=== PATIENT | female | born 1965 | race Caucasian/White ===

== ENCOUNTER 2020-01-01 16:39 | Outpatient (CLI) | payer BC, SELFPAY ==
--- NOTE | ~2020-01-01 | XR_ITS ---
XR sacrum coccyx min 2V DATE: 01/01/2020 17:13 INDICATION: Low back pain, right sciatica TECHNIQUE: AP, angled AP and lateral views COMPARISON: None FINDINGS: No fracture or bone destruction of the sacrum or coccyx. The sacroiliac joints are intact. Severe degenerative disc disease is noted at L4-5. IMPRESSION: Severe degenerative disc disease at L4-5 Reviewed, dictated and finalized at location A.
--- NOTE | ~2020-01-01 | XR_ITS ---
XR lumbar spine 2-3V DATE: 01/01/2020 17:13 INDICATION: Low back pain, right sciatica TECHNIQUE: AP, lateral, coned lateral lumbosacral views COMPARISON: None FINDINGS: There is normal alignment of the lumbar spine. No fracture or bone destruction or spondylol isthesis. There is severe degenerative disc disease with prominent posterior spurring at L4-5. There is mild to moderate degenerative disc disease at L1-2 and L2-3. There is mild degenerative disc disease at L3-4 and L5-S1. No fracture or bone destruction. The included lower thoracic and lumbar pedicles are intact. The sacroiliac joints are intact. IMPRESSION: Multilevel degenerative disc disease, especially at L4-5 Reviewed, dictated and finalized at location A.
== END 2020-01-01 16:40 | disposition home or self-care (01) ==
PROVIDERS: PCP Family Medicine; Visit Provider Nurse Practitioner
DX: M54.41 Lumbago with sciatica, right side (principal); M51.36 Other intervertebral disc degeneration, lumbar region
CPT/HCPCS: 72100; 72220

== ENCOUNTER 2023-06-03 08:49 | Emergency (ER) | payer OTHER, SELFPAY ==
--- NOTE | ~2023-06-03 | CT_ITS ---
EXAMINATION: CT abdomen pelvis w con DATE: 06/03/2023 09:41 INDICATION: Left abdominal pain. Nausea and vomiting. TECHNIQUE: Computed tomography (CT) of the abdomen and pelvis was performed with 100 mL Omnipaque 350 intravenous contrast. Automated exposure control and iterative reconstruction technique were employe d. The dose-length product was 923.65 mGy-cm. COMPARISON: CT abdomen and pelvis 12/12/2012 FINDINGS: The visualized portions of the lung bases demonstrate mild atelectasis. No pleural effusion . The heart size is normal. No pericardial effusion. There is a small sliding hiatal hernia. The live r, spleen, pancreas, and adrenal glands are normal. The gallbladder is absent. There is a 4 mm cyst i n right kidney. There are two stones in right kidney measuring up to 4 mm. There is a delayed left-si ded contrast nephrogram. There are 3 mm and 6 mm stones in left kidney. There is mild left hydronephr osis and hydroureter. There is a 2 mm stone in distal left ureter. 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 There is diverticulosis of the colon without evidence of diverticulitis. There are no dila hawa loops of bowel. The appendix is normal. There are no pathologically enlarged lymph nodes. There i s no free intraperitoneal fluid. There is severe lumbar spondylosis. IMPRESSION: 1. 2 mm stone in distal left ureter with mild left hydronephrosis and hydroureter. 2. Bilateral nonobstructing kidney stones. Reviewed, dictated and finalized at location A. OM PRESSER IMPRESSION: 1. 2 mm stone in distal left ureter with mild left hydronephrosis and hydrouret er. 2. Bilateral nonobstructing kidney stones.
[2023-06-03 08:50] VITALS: BP 166/89; PULSE 75; RESP 20; TEMP 36.6; O2SAT 99
--- NOTE | 2023-06-03 09:08 | ECG_ITS ---
Measurements Intervals Walsh Rate: 82 P: 60 NV: 148 QRS: 43 QRSD: 80 T: 38 QT: 397 QTc: 464 Interpretive Statements SINUS RHYTHM NO PREVIOUS ECG AVAILABLE FOR COMPARISON Electronically Signed On 06-03-2023 13:59:52 [employer] by Amanda Read M.D.
--- NOTE | 2023-06-03 09:11 | ED.ABDPAIN ---
HPI - Abdominal Pain General Chief Complaint: Abdominal Pain Stated Complaint: ABD PAIN Time Seen by Provider: 06/03/23 08:58 History of Present Illness HPI narrative: Patient noticed severe pain to her left flank, with nausea vomiting, radiating to the front, she took an Aleve last night to sleep, woke up this morning the pain was worse, she tried Tylenol, it did not help, so came to the hospital. Normal bowel movements. No fevers or chills. No dysuria. Related Data Allergies Allergy/AdvReac Type Severity Reaction Status Date / Time ciprofloxacin Allergy Verified 05/04/13 13:18 levofloxacin Allergy Verified 05/04/13 13:18 CIPROFLOXACIN HCL Allergy Uncoded 05/04/13 13:18 Review of Systems Review of Systems: All systems reviewed & are unremarkable except as noted in HPI and below PMFSH Family History Family History (Updated 11/29/15 @ 23:19 by DOCTOR UNKNOWN) Mother Hypertension Family history of heart disease in male family member before age 55 Father Family history of diabetes mellitus in first degree relative Social History Social History Alcohol intake: current Exam Narrative: EXAMINATION OF ORGAN SYSTEMS/BODY AREAS: Constitutional: Vital signs per nursing GENERAL: Curled up with emesis bag, looking sad HEAD: Normal with no signs of head trauma. EYES: EOMI, conjunctiva normal ENT: Hearing grossly intact LUNGS: Nonlabored breathing. HEART: [Regular rate and rhythm] ABD: [Soft], [nontender to palpation anterior abdomen; she does have L CVA tenderness] EXT: Normal range of motion SKIN: [No rashes or lesions.] NEURO: [Alert and oriented x 3. No gross focal sensory or strength deficits.] PSYCH: Normal affect Course Vital Signs Vital signs: Vital Signs Temperature 97.8 F 06/03/23 08:50 Pulse Rate 75 06/03/23 08:50 Respiratory Rate 20 06/03/23 08:50 Blood Pressure 166/89 H 06/03/23 08:50 Pulse Oximetry 99 06/03/23 08:50 Oxygen Delivery Room Air 06/03/23 08:50 Temperature 98 F 06/03/23 11:30 Pulse Rate 93 06/03/23 11:30 Respiratory Rate 18 06/03/23 11:30 Blood Pressure 176/89 H 06/03/23 11:30 Pulse Oximetry 97 06/03/23 11:30 Oxygen Delivery Room Air 06/03/23 08:50 MDM - Abdominal Pain MDM Narrative Medical decision making narrative: ED COURSE AND MEDICAL DECISION MAKINF presenting to the emergency department for acute flank pain, symptoms are concerning for likely renal colic versus pyelonephritis, also considered diverticulitis. Urinalysis is ordered. IV [Morphine 4mg, Zofran 4mg] are ordered. CT scan of the abdomen/pelvis is ordered. Labs are remarkable for: WBC 13.5, slightly elevated LFTs, UA slight RBCs. CT scan of the abdomen/pelvis is reviewed by myself and interpreted by radiology: 2mm distal stone L ureter. On reevaluation, the patient still having some pain but appears more comfortable. She is agreeable to outpatient followup and management. Patient is strongly advised to return to the emergency department for any increasing pain not improving with medications, persistent nausea vomiting, fevers or chills or for any other concerns. Patient is comfortable with this plan and was discharged in fair condition. Lab Data 06/03/23 09:19 06/03/23 09:28 Labs: Lab Results 06/03/23 06/03/23 06/03/23 Range/Units 09:16 09:16 09:16 WBC (4.5-10.0) K/mm3 RBC (4.2-5.4) M/mm3 Hgb (12.0-15.0) g/dL Hct (37.0-47.0) % MCV (80-100) fl MCH (26-34) pg MCHC (32-36) g/dl RDW (11.5-14.5) % Plt Count (150-375) k/mm3 MPV (7.4-10.4) fl Immature Gran % (Auto) (0-0.5) % Neut % (Auto) (45.5-73.1) % Lymph % (Auto) (18.3-44.2) % [place] % (Auto) (2.6-8.5) % Eos % (Auto) (0-4.4) % Baso % (Auto) (0.2-1.2) % Lymph # (Auto) (0.9-3.2) K/mm3 [place] # (Auto) (0.1-0.6) K/mm3 Eos # (Auto) (0-0.3) K/mm3 Baso # (Auto)
[2023-06-03] MEDS: ONDANSETRON INJ 4 MG/2 ML VIAL IV PUSH (09:13)
[2023-06-03] MEDS: MORPHINE SULFATE (*CRX) 4 MG/ML INJ IV PUSH (09:13)
[2023-06-03 09:19] VITALS: BP 131/88; PULSE 79; RESP 18; O2SAT 95
[2023-06-03 09:26] LABS: Basophils Absolute Auto 0.1 K/mm3 (0.0-0.1); Basophils Percent Auto 0.4 % (0.2-1.2); Hematocrit 46.1 % (37.0-47.0); Hemoglobin 15.2 g/dL (12.0-15.0); Immature Granulocyte Absolute 0.08 K/mm3 (0.00-0.031); Immature Granulocyte Percent A 0.6 % (0-0.5); Lymphocytes Absolute Auto 1.32 K/mm3 (0.9-3.2); Lymphocytes Percent Auto 9.8 % (18.3-44.2); Mean Corpuscular Hemoglobin 28.9 pg (26-34); Mean Corpuscular Volume 87.6 fl (80-100); Mean Platelet Volume 9.9 fl (7.4-10.4); Monocytes Absolute Auto 0.5 K/mm3 (0.1-0.6); Monocytes Percent Auto 3.5 % (2.6-8.5); Neutrophils Absolute Auto 11.5 K/mm3 (1.3-6.7); Neutrophils Percent Auto 85.7 % (45.5-73.1); Platelet Count Result 274 k/mm3 (150-375); Red Blood Count 5.26 M/mm3 (4.2-5.4); Red Cell Distribution Width 13.6 % (11.5-14.5); White Blood Count 13.5 K/mm3 (4.5-10.0)
[2023-06-03 09:30] LABS: Estimated CRCL calculation 71 ml/min; Estimated Glomerular Filt Rate > 60
[2023-06-03 09:32] LABS: Appearance Urine Clear (Clear); Bacteria Urine None Seen /hpf; Bilirubin Urine Negative (Negative); Blood Urine 1+ (Negative); Color Urine Yellow (Yellow); Glucose Urine UA 2+ mg/dL (Negative); Ketones Urine 1+ mg/dL (Negative); Leukocyte Esterase Ur Negative LEU/UL (Negative); Nitrate Urine Negative (Negative); Non Pathogenic Casts 0-2; Protein Urine 2+ mg/dL (Negative); Squamous Epithelial Cell Urine None seen /hpf (Few); Urobilinogen Urine 0.2 mg/dL (<2.0); WBC Urine 0-5 /hpf; pH Urine 6.5 (5.0-9.0)
[2023-06-03 09:45] LABS: Alanine Aminotransferase 83 U/L (6-35); Albumin Level 4.6 g/dL (3.5-5.1); Alkaline Phosphatase 161 U/L (38-126); Anion Gap 15 mmol/L (8-16); Aspartate Amino Transferase 45 U/L (14-36); Bilirubin,Total 0.9 mg/dL (0.2-1.3); Blood Urea Nitrogen 20 mg/dL (7-17); Calcium 9.6 mg/dL (8.4-10.2); Carbon Dioxide 20 mmol/L (22-30); Chloride 104 mmol/L (98-107); Estimated CRCL calculation 71 ml/min; Estimated Glomerular Filt Rate > 60; Glucose 180 mg/dL (65-110); Lipase 64 U/L (23-300); Potassium 4.1 mmol/L (3.4-5.0); Sodium 139 mmol/L (137-145)
[2023-06-03 09:49] LABS: Add Urine Microscopic? YES
[2023-06-03] MEDS: KETOROLAC 15 MG/ML VIAL (*BKC) IV PUSH (10:19)
[2023-06-03] MEDS: LACTATED RINGERS 1,000 ML 999 ML IV CONT (10:19)
[2023-06-03 10:21] VITALS: PULSE 85; RESP 18; O2SAT 94
[2023-06-03 11:30] VITALS: BP 176/89; PULSE 93; RESP 18; TEMP 36.6; O2SAT 97
== END 2023-06-03 11:30 | disposition home or self-care (01) ==
PROVIDERS: Emergency Provider Emergency Medicine; PCP Family Medicine
DX: N13.2 Hydronephrosis with renal and ureteral calculous obstruction (principal)
CPT/HCPCS: 36415; 74177; 80053; 81001; 83690; 85025; 93005; 96361; 96374; 96375; 99284; J1885; J2270; J2405; J7120; Q9967

== ENCOUNTER 2023-10-06 15:13 | Emergency (ER) | payer OTHER, SELFPAY ==
--- NOTE | 2023-10-06 15:31 | PC.NURSE ---
left due to her pcp calling in antibiotics for her dog bite
== END 2023-10-06 15:32 | disposition left against medical advice (07) ==
PROVIDERS: PCP Family Medicine
DX: T14.8XXA Other injury of unspecified body region, initial encounter (principal); W54.0XXA Bitten by dog, initial encounter
CPT/HCPCS: 99199

== ENCOUNTER 2023-10-21 11:43 | Emergency (ER) | payer OTHER, SELFPAY ==
--- NOTE | 2023-10-21 11:48 | ED.GENADULT ---
HPI - General Adult General Chief complaint: Skin/Abscess/Foreign Body Stated complaint: poss infection of wound to l finger Source: patient, RN notes reviewed and old records reviewed Mode of arrival: ambulatory Limitations: no limitations History of Present Illness HPI narrative: 58-year-old female to [facility] for complaint of redness, pain and swelling to distal phalanx of 3rd digit of left hand. Patient reports that she punctured the distal dorsal side that digit approximately 10-12 days ago with a thorn. patient attempted to clean and treat the wound at home using peroxide, Neosporin and bandages. Patient endorses increased swelling and pain. Patient denies pain radiating into hand or wrist, fever, numbness, tingling, decreased ROM. Patient in no acute distress. Related Data Allergies Allergy/AdvReac Type Severity Reaction Status Date / Time ciprofloxacin Allergy Other Verified 10/21/23 11:54 levofloxacin Allergy Other Verified 10/21/23 11:54 CIPROFLOXACIN HCL Allergy Other Uncoded 10/21/23 11:54 Review of Systems Review of Systems: All systems reviewed & are unremarkable except as noted in HPI and below Constitutional: Constitutional: Reports no additional constitutional complaints Eyes: Eyes: Reports no additional eye complaints ENT: Reports system reviewed and no additional complaints, except as documented Cardiovascular: Cardiovascular: Reports no additional cardiovascular complaints, Denies chest pain and Denies dyspnea Respiratory: Respiratory: Reports no additional respiratory complaints, Denies cough and Denies dyspnea Musculoskeletal: Musculoskeletal: Reports no additional musculoskeletal complaints Integumentary/Breasts: Skin/Breast: Reports swelling, Reports erythema, Reports skin pain and Reports wounds Neurologic: Reports system reviewed and no additional complaints, except as documented Comments: distal phalanx of 3rd digit, left hand Psychiatric: Psychiatric: Reports no additional psychiatric complaints [facility] Family History Family History Mother Hypertension Family history of heart disease in male family member before age 55 Father Family history of diabetes mellitus in first degree relative Social History Social History Alcohol intake: current Comments At the time of my signature, I reviewed and agree with the nursing past medical, surgical, social, and family history. There is no relevant family history pertinent to the patient complaint. Exam Const: General: cooperative, healthy appearing, no acute distress, alert and well nourished Nutritional Appearance: well nourished Orientation/consciousness: patient oriented x3 Limitations: no limitations HENMT: Head: normal to inspection Ears: external ears normal Face/Nose/Sinus: Normal external nose present, Normal nares present, normal facial exam, No erythema and No edema Face and sinus: normal facial exam, no erythema and no edema Mouth: Yes Normal oral and palatal mucosa present Eyes: General: appearance normal, both eyes and all related structures Neck: Neck: normal visual inspection, full ROM and no meningeal signs Lymphatic: no lymphadenopathy noted and no lymphedema noted Chest: Chest palpation & inspection: normal inspection of the chest Resp: Effort & Inspection: normal respiratory effort and able to speak in complete sentences Cardio: Jugular venous distension: no JVD Rate: regular rate Rhythm: regular rhythm Back/Spine/Pelvis: Cervical Spine: cervical ROM normal Skin: General skin exam: wounds noted Other: distal phalanx 3rd digit left hand Neuro: General: patient oriented x3, gait normal, moves all extremities and no meningeal signs Speech: normal speech Gait exam (Neuro): Normal gait present Extrem: General: normal to inspection, full ROM and capillary refill nor
[2023-10-21 11:58] VITALS: BP 145/95; PULSE 70; RESP 16; TEMP 36.8; O2SAT 98
== END 2023-10-21 12:15 | disposition home or self-care (01) ==
PROVIDERS: Emergency Provider Nurse Practitioner Family
DX: L03.012 Cellulitis of left finger (principal)
CPT/HCPCS: 99213; G0463